=== PATIENT | female | born 1935 | race Caucasian/White ===

== ENCOUNTER 2018-12-18 20:23 | Observation (INO) | payer MEDICARE ==
[2018-12-18 22:08] LABS: CKMB 2.6 ng/mL (0-6.6)
--- NOTE | 2018-12-18 22:59 | HP ---
PRIMARY CARE PHYSICIAN: Out of town, unknown. CHIEF COMPLAINT: Fall. HISTORY OF PRESENT ILLNESS: 83-year-old female with past medical history of dementia, coronary artery disease, hypertension, who presents to the emergency department after she had a fall. The patient usually with her niece, but her niece had a fall and she is admitted to the hospital. The patient has been living alone. History obtained from the stepdaughter who lives in [place]. Per stepdaughter, the patient is functional and is able to do things on her own. The patient was being watched by a neighbor. The neighbor reported diarrhea on Friday, but no diarrhea since then. The patient had a fall. Police was called and APS was called and the case was opened as well too. The patient was noted to have low blood pressure and high pulses and the patient was sent to the ER for further workup. The patient unable to explain what is going on with her due to dementia. PAST MEDICAL HISTORY: Hypertension, coronary artery disease, and dementia. PAST SURGICAL HISTORY: The patient appeared to have cardiac surgery, cataract surgery, and mastectomy with history of breast cancer, history of thyroid surgery. SOCIAL HISTORY: No known history of smoking, illicit drugs. FAMILY HISTORY: Unknown. The patient's son of liver cancer. REVIEW OF SYSTEMS: Unable to perform due to dementia. ALLERGIES: NO KNOWN ALLERGIES THAT COULD BE FOUND. PHYSICAL EXAMINATION: VITAL SIGNS: Blood pressure 118/53, pulse 82, respiration rate 18, temperature 98.3, and O2 saturation 96% on room air. GENERAL: The patient appears to be alert, disoriented, but is cooperative and pleasant HEENT: Head, atraumatic. Eyes, extraocular movement intact. Ears and nose, no bleeding noted. Throat, no exudate. NECK: No lymphadenopathy noted. CARDIOVASCULAR EXAMINATION: Regular rate and rhythm. No murmur, rubs, or gallops. RESPIRATORY EXAMINATION: Clear bilaterally. No wheezes. ABDOMEN: Soft, nontender. EXTREMITIES: Lower extremities, no edema noted. SKIN: No rashes. NEUROLOGICAL EXAMINATION: The patient is alert and cooperative. IMAGING DATA: C-spine, pelvis, brain, and chest x-ray reviewed, negative for acute abnormalities. LABORATORY DATA: Reviewed. CBC noted to be generally unremarkable. BMP; sodium 136, potassium 3.1, chloride 98, carbon dioxide 26, BUN 25, creatinine 1.12. Lactic acid 1.6, glucose 106. Troponin 0.038. Lipase 53. Urine done through straight cath, positive for protein, positive for ketones and negative for nitrites and leukocyte esterase. White blood cell count positive, squamous epithelial positive, and urine bacteria positive. ASSESSMENT AND PLAN: 1. Suspected urinary tract infection. 2. Hypokalemia. 3. Fall. 4. Hypertension. 5. Diarrhea. PLAN: 1. The patient was given Zosyn in the ER. We will continue ceftriaxone. We will continue IV fluids. Follow up blood cultures and acute urine culture. 2. Hypokalemia. The patient was given potassium. We will follow up labs in the morning. 3. Fall. Imaging study is negative. Given patient's history of dementia, we will place patient on fall precautions at this point. Case management consulted for further assistance with dispo. The patient's stepdaughter wanted to take the patient with her to [place]. PT/OT ordered. APS has already has open case 4. Hypertension. We will restart home medications once verified. We will have hydralazine p.r.n. 5. Dementia. Continue home medications once they have been verified. 6. Indeterminate troponin. We will trend the troponins. 7. Code status. We will have patient as full code as we are unable to verify a medical power of litigation attorney at this point. Medical power of litigation attorney unknown. The patient's niece, who usually lives with her, is being investigated by APS. 8. DVT prophylaxis addressed. Job ID: [id number]
[2018-12-18] MEDS ORDERED: Acetaminophen 325 MG TAB PO PRN (23:00)
[2018-12-18] MEDS ORDERED: Sodium Chloride 0.9% 1,000 ML IV SCH (23:00)
[2018-12-18] MEDS ORDERED: hydrALAZINE 20 MG/ML VIAL SLOW IVP PRN (23:00)
[2018-12-18] MEDS ORDERED: Ondansetron PF 4 MG/2 ML Vial IVP PRN (23:00)
[2018-12-18 23:12] VITALS: BMI 19.7
[2018-12-19 00:25] LABS: Troponin I 0.035 ng/mL (< 0.028)
[2018-12-19 03:13] LABS: #Basophils 0.1 thou/uL (0.0-0.2); #Eosinphils 0.1 thou/uL (0.0-0.7); #Lymphocytes 1.6 thou/uL (1.20-3.40); #Monocytes 0.5 thou/uL (0.11-0.59); #Neutrophils 2.7 thou/uL (1.40-6.50); %Basophils 1.6 % (0.0-1.0); %Eosinophils 2.5 % (0.0-10.0); %Monocytes 10.2 % (0.0-10.0); %Neutrophils 53.8 % (42.0-75.0); Mean Corpuscular HGB CONC 32.3 g/dL (32.0-36.0); Mean Corpuscular Hemoglobin 28.8 pg (27.0-31.0); Mean Corpuscular Volume 89.4 fL (78.0-98.0); Mean Platelet Volume 7.9 fL (7.4-10.4); Platelet Count 159 thou/uL (130-400); Red Blood Cell (RBC) Count 4.17 mill/uL (4.20-5.40); White Blood Cell (WBC) Count 5.1 thou/uL (4.8-10.8)
[2018-12-19 03:38] LABS: Troponin I 0.032 ng/mL (< 0.028)
[2018-12-19 03:56] LABS: Anion Gap 12 mmol/L (10-20); BUN (Urea Nitrogen) 21 mg/dL (9.8-20.1); Calc. Creatinine Clearance 47 mL/min (70-130); Calcium 8.2 mg/dL (7.8-10.44); Carbon Dioxide 22 mmol/L (23-31); Chloride 105 mmol/L (98-107); Estimated GFR-MDRD 78; Glucose 89 mg/dL (83-110); Potassium 3.6 mmol/L (3.5-5.1); Sodium 135 mmol/L (136-145)
[2018-12-19] MEDS ORDERED: Enoxaparin Sodium 30 MG/0.3 ML SYRINGE SC SCH (09:00)
[2018-12-19] MEDS ORDERED: Prevnar 13-Val Conj/PF 0.5 ML SYRINGE IM ONE (09:00)
[2018-12-19] MEDS ORDERED: Alendronate Sodium 70 mg Tablet PO SCH (10:15)
[2018-12-19] MEDS ORDERED: Sodium Chloride 0.9% 1,000 ML IV SCH (10:27)
[2018-12-19] MEDS ORDERED: Calcium Carbonate + Vit D 1 TAB PO SCH (11:00)
[2018-12-19] MEDS ORDERED: Donepezil HCl 5 MG TAB PO SCH (11:00)
[2018-12-19] MEDS ORDERED: Atorvastatin Calcium 10 MG TAB PO SCH (11:00)
[2018-12-19 15:35] VITALS: BP 172/93; TEMP 97.6
[2018-12-20] MEDS ORDERED: Calcium Carbonate + Vit D 1 TAB PO SCH (09:00)
[2018-12-20] MEDS ORDERED: Atorvastatin Calcium 10 MG TAB PO SCH (09:00)
[2018-12-20] MEDS ORDERED: Donepezil HCl 5 MG TAB PO SCH (09:00)
== END 2018-12-19 16:05 | disposition home or self-care (01) ==
LOC: ERS 20:23 → 2SW 22:43
PROVIDERS: ADMIT Family Medicine; ATTEND Family Medicine
DX: I95.9 Hypotension, unspecified (principal); R19.7 Diarrhea, unspecified; E87.6 Hypokalemia; F03.90 Unspecified dementia, unspecified severity, without behavioral disturbance, psychotic disturbance, mood disturbance, and anxiety; I10 Essential (primary) hypertension; I25.10 Atherosclerotic heart disease of native coronary artery without angina pectoris; Z85.3 Personal history of malignant neoplasm of breast; Z90.10 Acquired absence of unspecified breast and nipple; Z90.89 Acquired absence of other organs; Z79.899 Other long term (current) drug therapy; Z98.890 Other specified postprocedural states; Z88.2 Allergy status to sulfonamides; W19.XXXA Unspecified fall, initial encounter
CPT/HCPCS: 80048; 82553; 84484 ×2; 85025; 87040; 87086; 90670; 94760; 96360; 96361; 96372; 97139; 99285; G0009; G0378 ×2; 36415; 90471; J1650